=== PATIENT | female | born 1975 | race Caucasian/White ===

== ENCOUNTER → 2017-06-10 | Outpatient (CLI) | payer OTHER | LOC: FIMAGING 09:27 | PROVIDERS: ATTEND Obstetrics & Gynecology | DX: Z12.31 Encounter for screening mammogram for malignant neoplasm of breast (principal) ==

== ENCOUNTER 2018-01-11 06:56 | Day surgery (SDC) | payer OTHER ==
--- NOTE | 2018-01-07 16:45 | GHP ---
DATE OF ADMISSION: 01/11/2018 ADMITTING DIAGNOSIS: Missed at 6 weeks. HISTORY OF PRESENT ILLNESS: The patient is a 42-year-old 1, para 1-0-0- 2, previous twin , who presents with a last menstrual period of 11/01/2017 , at about 9 weeks 1 day by last menstrual period, who presents for her new OB intake of an unplanned . The patient had an ultrasound done, showing size less than dates by 21 days; embryo and yolk sac seen measuring 6 weeks and 1 day. There was no cardiac activity seen, and ultrasound consistent with a missed AB. The patient denies any vaginal bleeding or any cramping at this time. She also denies any fevers, chills, nausea, or vomiting. She is anxious and wants to proceed with surgery to "get it over with." She has twin boys at home and does not want to start miscarrying at home. Patient is Rh positive. PAST OB HISTORY: In March 2015, she had a vaginal delivery of viable twins. Baby A was a male weighing 4 pounds 8 ounces, baby B male weighing 5 pounds 3 ounces at 37 weeks 1 day. complicated by IUGR. PRODUCTION DIRECTOR HISTORY: Age of menarche was 14. Cycles are irregular. Patient has a long history of abnormal Pap smears with multiple colposcopies, but no treatment. Positive high risk HPV. Patient denies exposure to any other STDs. MEDICATIONS: vitamins. ALLERGIES: No known drug allergies. PAST MEDICAL HISTORY: Unremarkable. PAST SURGICAL HISTORY: Unremarkable. FAMILY HISTORY: Mother, father, maternal grandmother, with hypertension. Paternal grandfather, maternal grandfather, and father with asthma; they were smokers. Paternal grandmother in her 60s secondary to ovarian cancer. Maternal grandmother secondary to bone cancer. Maternal grandfather secondary to lung cancer. SOCIAL HISTORY: The patient is and lives with her and their twin boys. Patient denies any alcohol, tobacco or illicit drug use. REVIEW OF SYSTEMS: Ten point review of systems negative. Pertinent positives noted in HPI. LABS: Quant HCG (01/04) of 50,991 and (01/06) 48,720. Progesterone is 13.2. The patient is O positive. EXAMINATION: VITAL SIGNS: On admission, vital signs are stable. Patient is afebrile well-nourished, well-developed female. Alert and oriented x3. No apparent distress. SKIN: Warm, dry without rash. NEURO: Grossly intact. CARDIOVASCULAR: Regular rate and rhythm. LUNGS: Clear to auscultation bilaterally. ABDOMEN: Soft, nontender, nondistended. PELVIC EXAM: Deferred. EXTREMITIES: Normal to inspection without calf tenderness or edema. ASSESSMENT/PLAN: Patient is a 42-year-old 2, para 1-0-0-2 with a missed at 6 weeks. 1. Admit to Labor and Delivery. 2. Plan for suction dilation and curettage under u/s guidance. 3. Surgical consents to be done at the bedside. Discussed risks, benefits, alternatives of the procedure including but not limited to, bleeding, infection , and risk of uterine perforation. 4. Patient understands all risks of this procedure and wants to proceed. 5. Discussed the procedure, its limitations, n.p.o. status, and postop recovery. 6. Antibiotics consultant intern to operating room, will give oral doxycycline prior to the surgery and then again postoperatively in recovery room. 7. Sequential compression devices for deep venous thrombosis prophylaxis. /[id number]/MODL MTDD
[2018-01-11] MEDS ORDERED: MIDAZOLAM 2 MG/2 ML VIAL IVP ONE (06:57)
[2018-01-11] MEDS ORDERED: LR 1,000 ML IV ONE (06:57)
[2018-01-11] MEDS ORDERED: DOXYCYCLINE HYCLATE 100 MG CAP/TAB PO ONE ×4 (06:57→10:45)
--- NOTE | 2018-01-11 07:39 | PDHPUP ---
History & Physical Update H&P update statement: This history and physical update is based on an assessment of the patient which was completed after admission or registration (within 24 hours), but prior to the surgery/procedure. H&P update: H&P reviewed & patient examined, no change in patient's condition since H&P completed
--- NOTE | 2018-01-11 08:29 | PDANEPAE ---
ANE History of Present Illness Missed Ab. ANE Past Medical History - Cardiovascular History Hx Hypertension: No Hx Arrhythmias: No Hx Chest Pain: No Hx Coronary Artery / Peripheral Vascular Disease: No Hx CHF / Valvular Disease: No Hx Palpitations: No - Pulmonary History Hx COPD: No Hx Asthma/Reactive Airway Disease: No Hx Recent Upper Respiratory Infection: No Hx Oxygen in Use at Home: No Hx Sleep Apnea: No - Endocrine History Hx Diabetes: No Hypothyroid: No Hyperthyroid: No Obesity: no - Chronic Pain History Chronic Pain: No - Surgical History Prior Surgeries: Twin delivery with labor epidural. ANE Review of Systems Review of systems is: negative Review of Systems: - Exercise capacity Exercise capacity: >=4 METS ANE Patient History - Allergies Allergies/Adverse Reactions: No Known Allergies Allergy (Unverified 02/25/15 11:31) - Home Medications Home Medications: Pnv Cmb#21/Iron/Folic Acid 1 tab PO DAILY 03/04/15 [Last Taken 04/08/15 07:00] - NPO status NPO Status: no food or drink >8 hours NPO Since - Liquids (Date): 01/11/18 NPO Since - Solids (Date): 01/10/18 NPO Since - Solids (Time): 10:00 - Smoking Hx Smoking Status: Never smoked - Alcohol Use Alcohol Use: Rarely - Family Anes Hx Family Anes Hx: neg - N/A ANE Labs/Vital Signs - Vital Signs Blood Pressure: 111/84 O2 Sat (%): 97 Height: 165.1 cm Weight: 51.256 kg ANE Physical Exam - Airway Neck exam: FROM Mallampati Score: Class 1 Mouth exam: normal dental/mouth exam - Pulmonary Pulmonary: no respiratory distress - Cardiovascular Cardiovascular: regular rate and rhythym - ASA Status ASA Status: I ANE Anesthesia Plan Anesthesia Plan: GA with mask
[2018-01-11] MEDS ORDERED: PROPOFOL 200 MG/20 ML VIAL ONE ×2 (08:37)
[2018-01-11] MEDS ORDERED: fentaNYL 100 MCG/2 ML INJ ONE (08:38)
--- NOTE | 2018-01-11 09:41 | POSTOPPROG ---
Post Op Note Date of Operation: 01/11/18 Surgeon: Cony Dahl Miscellaneous Machine Operator: None Anesthesiologist: Dr. Flores Anesthesia: Other (Specify) (GA with mask) Pre-op Diagnosis: Missed Ab at 6 weeks Post-op Diagnosis: Missed Ab at 6 weeks Indication: 42 y/o who presented for new Ob intake and had u/s c/w missed AB. Procedure: Suction D&C under u/s guidance Findings: No active bleeding; cx closed. Uterus sounded to 9 cm. Mod amt POCs. Rh pos Inf/Abcess present in the surg proc area at time of surgery?: No Depth: Organ Space EBL: 50-100 (50cc) Total fluids administered: 1 L LR UO: pt emptied bladder prior to OR Complications: none Specimen(s): POCs
[2018-01-11] MEDS ORDERED: ONDANSETRON 4 MG/2 ML VIAL ONE ×2 (09:57→09:58)
[2018-01-11] MEDS ORDERED: LIDOCAINE 2% 2 ML INJ ONE (09:58)
[2018-01-11] MEDS ORDERED: KETOROLAC 30 MG/1 ML SDV ONE (09:58)
[2018-01-11] MEDS ORDERED: DEXAMETHASONE 4 MG/ML VIAL ONE ×2 (09:58)
[2018-01-11] MEDS ORDERED: METOCLOPRAMIDE 10 MG/2 ML VIAL IVP PRN (10:30)
[2018-01-11] MEDS ORDERED: fentaNYL 100 MCG/2 ML INJ IVP PRN (10:30)
[2018-01-11] MEDS ORDERED: NALOXONE HCL 0.4 MG/ML INJ IVP PRN (10:30)
[2018-01-11] MEDS ORDERED: HYDROCODONE/APAP 5/325 TAB PO PRN (10:30)
--- NOTE | 2018-01-11 10:31 | POSTANESTH ---
Post Anesthetic Evaluation Cardiovascular Status: Normal, Stable, Similar to Pre-Op Cond Respiratory Status: Normal, Stable, Similar to Pre-op Cond. Level of Consciousness/Mental Status: Can Participate in Eval, Alert and Oriented Pain Control: Adequate, Prn Tx Ordered Nausea/Vomiting Control: Adequate, Prn Tx Ordered Complications Possibly Related to Anesthesia: None Noted
[2018-01-11 11:09] VITALS: BP 104/65
--- NOTE | 2018-01-11 13:51 | GOP ---
DATE OF OPERATION: 01/11/2018 SURGEON: Cony Dahl DO PRESS PIPE INSPECTOR: None. ANESTHESIA: GA with mask. ANESTHESIOLOGIST: Valentin Flores MD PREOPERATIVE DIAGNOSIS: Missed at 6 weeks. POSTOPERATIVE DIAGNOSIS: Missed at 6 weeks. PROCEDURE PERFORMED: Suction D and C under ultrasound guidance. FINDINGS: No active bleeding noted. Cervix was closed and needed to be dilated up to a #8 Hegar. Uterus then sounded to 9 cm. A moderate amount of products of conception noted. Patient is Rh positive. SPECIMENS: Products of conception. ESTIMATED BLOOD LOSS: 50 cc. INDICATIONS: The patient is a 42-year-old, G2, P1-0-0-2, previous twin , who presented for her new OB intake for an unplanned . The patient did have an ultrasound done that revealed an embryo and yolk sac that was measuring 21 days behind, but no heart rate was noted. This was consistent with a missed AB. The patient was anxious, and did not want to miscarry at home with her twins boys. She desires to have surgery done as soon as possible. Discussed proceeding to the operating room for a suction D and C. We discussed risks of the procedure including but not limited to, bleeding, infection, and risk of uterine perforation. The patient understands all risks of the procedure and wants to proceed. She was properly consented. DESCRIPTION OF PROCEDURE: The patient was taken back to the operating room where anesthesia was obtained without difficulty. The patient was prepped and draped in the usual sterile fashion in dorsal lithotomy position. A weighted speculum was placed. The anterior lip of the cervix was grasped with an Allis clamp. At this time, no active bleeding was seen and the cervix was closed. The cervix had to be dilated up to a #8 Hegar and then the uterus was gently sounded to 9 cm. Then using a curved 8 mm suction curette, this was advanced up into the uterine cavity without difficulty and was used to suction the contents of the uterus. This was done multiple times under ultrasound guidance with removal of moderate products of conception. We then turned our attention to a sharp curette which was advanced into the uterine cavity and used to scrape the 4 vela of the uterus until a gritty texture was noted. At this time , the suction curette was advanced one additional time to suction any remaining products of . Looking at the ultrasound, there appeared to be a thin endometrial stripe noted at this time with removal of all products of . Minimal bleeding was noted. All instruments were then removed from the vagina. Hemostasis was visualized. Sponge, lap, and instrument counts were correct x2. There were no complications. Patient tolerated the procedure well. The patient was then taken out of dorsal lithotomy position, awakened, and taken to the recovery room in stable condition. IV FLUIDS: 1 L of LR. URINE OUTPUT: Patient emptied her bladder prior to the procedure. COMPLICATIONS: None. /[id number]/MODL MTDD
== END 2018-01-11 11:15 | disposition home or self-care (01) ==
LOC: FOBOP 06:56
PROVIDERS: ATTEND Obstetrics & Gynecology
PROC: 10D17ZZ Extraction of Products of Conception, Retained, Via Natural or Artificial Opening (ICD-10-PCS; principal; 2018-01-11)
DX: O02.1 Missed abortion (principal)
CPT/HCPCS: J1100; J1885; J2250; J2405; J2704; J3010

== ENCOUNTER → 2018-07-12 | Outpatient (CLI) | payer OTHER | LOC: FIMAGING 08:54 | PROVIDERS: ATTEND Obstetrics & Gynecology | DX: Z12.31 Encounter for screening mammogram for malignant neoplasm of breast (principal) ==